=== PATIENT | female | born 1955 | race Caucasian/White ===

== ENCOUNTER → 2016-09-12 | Outpatient (CLI) | payer BC ==
--- NOTE | 2016-09-14 09:53 | RADIOLOGY REPORT PS360 ---
DIG MAMM-SCREEN REESE W/CAD CAD Screening COMPARISON: Digital mammograms 09/10/2015 and 09/07/2014 INDICATION: There is a history of breast cancer patient's mother diagnosed after menopause. TECHNIQUE: Standard CC and MLO images were obtained. R2 CAD reviewed. FINDINGS: The breasts are composed primarily of fat with scattered fibroglandular densities in both breast primarily upper outer quadrants. There is a mole marker right breast. There are few benign-appearing calcifications in each breast. There are small nodes in both axilla. There is no suspicious lesion and there are no suspicious microcalcifications. IMPRESSION: Fibrofatty parenchyma with no suspicious lesion seen recommend yearly follow-up BI-RADS CATEGORY: 2_Benign RECOMMENDED FOLLOWUP: 12M 12 MONTH FOLLOW-UP (A letter has been sent to the patient regarding results of the study.)
== END ==
LOC: RAD 08:18
DX: Z12.31 Encounter for screening mammogram for malignant neoplasm of breast (principal)
CPT/HCPCS: G0202